=== PATIENT | male | born 1960 | race Caucasian/White ===

== ENCOUNTER 2016-12-11 08:27 | Day surgery (SDC) | payer BC ==
[2016-12-11] MEDS ORDERED: PROPOFOL 10 MG/ML VIAL IV ONE (14:00)
[2016-12-11] MEDS ORDERED: LIDOCAINE 2% MDV (20MG/ML) 20ML VIAL IV ONE (14:00)
[2016-12-11] MEDS ORDERED: MIDAZOLAM HCL 2MG/2ML VIAL IV ONE (14:00)
--- NOTE | 2016-12-15 14:51 | Operative Note ---
DATE OF SURGERY: 12/11/2016 SURGEON: Magi Monteiro MD OPERATION: COLONOSCOPY. INDICATIONS: This is a 55-year-old male with history of left-sided lower quadrant abdominal pain who was found to have had constipation and presents now for colonoscopy. POSTOPERATIVE DIAGNOSES: 1. Left-sided colonic diverticulosis. 2. Three 6 mm sessile polyps in the sigmoid colon that were removed by cold snare and snare cautery. 3. Two 2-3 mm sessile polyps in the descending colon that were removed by cold biopsy forceps and an 8 mm sessile polyp that was removed by snare cautery. 4. Two 8-10 mm ascending colon polyps that were removed by snare cautery. 5. A 3mm rectal polyp that was removed by cold biopsy forceps. ANESTHESIA: Sedation is per Anesthesia. Pulse oximetry was monitored throughout the procedure to maintain O2 saturation of 90% or greater. Supplemental oxygen was administered via nasal cannula. Cardiac and vital signs were monitored throughout the duration of the procedure, and they were stable. The procedure of colonoscopy and risks and alternatives of the procedure, including the risk of bleeding and perforation, among others, were explained to the patient who voiced understanding and agreed to have the procedure done. Physical examination was performed, and the patient was found stable for sedation. PROCEDURE: The patient was placed in the left lateral position. Sedation was initiated. A digital rectal exam was performed and showed some mild external hemorrhoids with no palpable rectal masses. An Olympus PCF-180AL colonoscope was then inserted into the rectum under direct visualization. It was advanced to the cecum without difficulty. The ileocecal valve and appendiceal orifice were identified and photographed. The colonic mucosa was carefully examined upon introduction of the colonoscope. There were scattered diverticula noted in the sigmoid and descending colon. In the sigmoid colon were three 6 mm sessile polyps that were noted and were removed by cold snare and snare cautery. In the ascending colon were two 8-10 mm sessile polyps that were removed by snare cautery. There were no other lesions noted. The colonoscope was then withdrawn while carefully examining the colonic mucosal surfaces. The cecum, the rest of the ascending colon, and transverse colon appeared normal. In the descending colon were two 2-3 mm sessile polyps that were noted and they were removed by cold biopsy forceps with one 8 mm polyps that was removed by snare cautery. No lesions were noted in the sigmoid. In the rectum was a 3 mm sessile polyp that was removed by cold biopsy forceps. The colonoscope was then withdrawn and the procedure was terminated. The patient tolerated the procedure well without any immediate complications. He remained with stable vital signs and was transferred to the recovery room. RECOMMENDATIONS: 1. The patient is to avoid any aspirin or aspirin-like medications for 2 weeks and thereafter can resume. 2. The patient is to be on a low-residue diet for 2 weeks and therefore to be on a high-fiber diet. 3. We will follow up on the histology of the polyps and he is to have repeat colonoscopy for surveillance in about 3 years. Thank you for allowing me to participate in the care of your patient. Magi Monteiro MD CC: Иван PIERCE
== END 2016-12-11 10:50 | disposition home or self-care (01) ==
LOC: HOP 08:27
PROVIDERS: ATTEND Internal Medicine Gastroenterology
DX: R10.32 Left lower quadrant pain (principal); D12.2 Benign neoplasm of ascending colon; D12.4 Benign neoplasm of descending colon; K63.5 Polyp of colon; K62.1 Rectal polyp; K57.30 Diverticulosis of large intestine without perforation or abscess without bleeding